=== PATIENT | female | born 1965 | race African-American/Black ===

== ENCOUNTER 2018-03-15 06:02 | Emergency (ER) | payer OTHER ==
[~2018-03-15] VITALS: Ht 170.2 cm; Wt 68.0 kg
[2018-03-15 06:02] VITALS: BP_SYST 153
[2018-03-15] MEDS ORDERED: LOSA50TA20 PO (06:15)
[2018-03-15 06:53] LABS: HEMATOCRIT 38.8 % (36-48); HEMOGLOBIN 13.2 g/dL (12.0-16.0); MEAN CORPUSCULAR HEMOGLOBIN 31 pg (27-31); MEAN CORPUSCULAR HGB CONC 34 % (32-36); MEAN CORPUSCULAR VOLUME 91 fL (79.0-98.0); PLATELET COUNT (AUTO) 195 K/uL (130-430); RED BLOOD CELL COUNT(AUTO) 4.26 MIL/uL (4.2-6.2)
[2018-03-15 06:57] LABS: ANION GAP 10 (5-15); CALCIUM 9.1 mg/dL (8.4-11.0); CHLORIDE 104 mmol/L (98-107); GFR AFRICAN AMERICAN 84 mL/min (>90); GLUCOSE 96 mg/dL (70-99); POTASSIUM 3.5 mmol/L (3.5-5.1); SODIUM SERUM 140 mmol/L (136-145); UREA NITROGEN, BLOOD 13 mg/dL (8-21)
[2018-03-15 07:02] LABS: PROTHROMBIN TIME 10.4 SECS (9.5-12.5)
[2018-03-15 07:06] LABS: ALANINE AMINOTRANSFERASE 19 U/L (12-78); ALBUMIN 3.8 g/dL (3.4-4.8); ASPARTATE AMINOTRANSFERASE 16 U/L (10-37); TOTAL BILIRUBIN 1.4 mg/dL (0.0-1.0)
[2018-03-15 07:15] VITALS: BP_SYST 148
[2018-03-15 07:31] LABS: LYMPHOCYTES % (MANUAL) 40 % (20-46)
[2018-03-15 07:32] LABS: BASOPHILS % (MANUAL) 0 % (0-2); EOSINOPHILS % (MANUAL) 3 % (0-7); MONOCYTES % (MANUAL) 6 % (0-11)
[2018-03-15 07:33] LABS: ATYPICAL LYMPHOCYTES % 8 % (0-0)
== END 2018-03-15 07:15 | disposition home or self-care (01) ==
LOC: SED 06:02
DX: R00.2 Palpitations (principal); F41.9 Anxiety disorder, unspecified; Z90.710 Acquired absence of both cervix and uterus; Z91.041 Radiographic dye allergy status; Z88.8 Allergy status to other drugs, medicaments and biological substances
CPT/HCPCS: 36415; 80053; 84484; 85007; 85027; 85610-TC; 93005; 99285